=== PATIENT | male | born 1970 | race Two or more races ===

== ENCOUNTER → 2018-11-22 | Outpatient (CLI) | payer BC, OTHER ==
--- NOTE | 2018-11-23 00:15 | CONS ---
CONSULTATION DATE OF SERVICE: 11/22/2018. INDICATIONS: A 48-year-old gentleman who has been evaluated in the sleep center for possible obstructive sleep apnea-hypopnea syndrome. HISTORY OF PRESENT ILLNESS/SLEEP AWAKE EVALUATION: The patient's usual sleep schedule is from 11 p.m. to 6 a.m. on working days and on weekends from around 11:30 p.m. to 7 or 8 a.m. Sometimes he has problems with falling asleep, although no TV in bedroom. He sleeps usually on the side or stomach position with loud snoring and witnessed episodes of stopped breathing during the sleep by his . He wakes up from sleep several times with sweating and sometimes dry mouth. In the morning the patient wakes up tired with difficulties with concentration and irritability. [place] Sleepiness Scale significantly increased to 15. PAST MEDICAL HISTORY: Positive for hypertension and kidney stones. PAST SURGICAL HISTORY: Cholecystectomy, surgery for kidney stone. MEDICATIONS: Lisinopril. SOCIAL HISTORY: Negative for smoking. Alcohol consumption occasional. FAMILY HISTORY: Hypertension, heart problems, colon cancer. REVIEW OF SYSTEMS: Snoring, awakenings from sleep, sleepiness during the day. PHYSICAL EXAM: GENERAL: gentleman without distress. BP 128/88, HR 87, RR 14, height 6 feet 4 inches, weight 287.6 pounds, body mass index 34.9, temperature 97.6, oxygen saturation at room air 94%. Oropharynx low position of soft palate. Mallampati 3. NECK: Wide, 18-1/2 inches in circumference. ABDOMEN: Slightly obese. Bowel sounds are present. No organomegaly appreciated. EXTREMITIES No clubbing or cyanosis. MASTIC FLOOR LAYER Awake, alert, and oriented x3. Cranial nerves 2 to 7 intact. There is no fasciculation or atrophy. noted. No focal deficits observed. IMPRESSION: 1. Loud snoring, awakenings from sleep, sleepiness during the day, low position of soft palate, wide neck, obstructive sleep apnea-hypopnea syndrome. 2. Obesity, body mass index 34.9. 3. Hypertension. 4. History of kidney stone, status post surgical treatment in 2006. 5. Status post cholecystectomy in 2016. PLAN: 1. Home sleep apnea test for evaluation of patient's breathing during sleep. 2. Following plan after reviewing results of the sleep test. 3. Losing weight. 4. Sleep hygiene with regular time in bed for at least 8 hours. 5. No driving if feeling sleepiness. Thank you very much for referring this patient for consultation. Sincerely, Ronak Cardona MD, PhD, FAASM Diplomat of [place] [employer] [place] [employer] Stretcher Helper of [facility] [place] MMODL / SHANTA: [phone] /
== END ==
LOC: SLEEP 16:42
PROVIDERS: ATTEND Internal Medicine
DX: G47.33 Obstructive sleep apnea (adult) (pediatric) (principal); I10 Essential (primary) hypertension; Z87.442 Personal history of urinary calculi; Z90.49 Acquired absence of other specified parts of digestive tract; Z68.34 Body mass index [BMI] 34.0-34.9, adult
CPT/HCPCS: 99211

== ENCOUNTER 2019-01-25 07:33 | Day surgery (SDC) | payer BC, OTHER ==
[2019-01-23 10:47] VITALS: BMI 34.0
[~2019-01-25 07:33] MED LIST: LACTATED RINGERS 1,000 ML IV SCH; LIDOCAINE 1% 20 ML VIAL (10MG/ML) FOR IV START INTRADERMA PRN
[2019-01-25 07:58] VITALS: RESP 16; TEMP 97
--- NOTE | 2019-01-25 08:30 | P.GSHP ---
History of Present Illness H&P Date: 01/25/19 Chief Complaint: Family history: Cancer This is a 48-year-old male with a strong family history of colon cancer. Patient rents today for colonoscopy. Patient's brother has colon cancer. Past Medical History Past Medical History: Hypertension Additional Past Medical History / Comment(s): KIDNEY STONES History of Any Multi-Drug Resistant Organisms: None Reported Past Surgical History: Cholecystectomy Additional Past Surgical History / Comment(s): COLONOSCOPY. SX FOR KIDNEY STONES Past Anesthesia/Blood Transfusion Reactions: No Reported Reaction Smoking Status: Never smoker - Past Family History Brother(s) Family Medical History: Cancer Medications and Allergies Home Medications Medication Instructions Recorded Confirmed Type Lisinopril [Zestril] 10 mg PO DAILY 01/23/19 01/23/19 History Allergies Allergy/AdvReac Type Severity Reaction Status Date / Time No Known Allergies Allergy Verified 01/25/19 07:48 Surgical - Exam Vital Signs Temp Pulse Resp BP Pulse Ox 97.0 F L 90 16 14/89 95 01/25/19 07:57 01/25/19 07:57 01/25/19 07:57 01/25/19 07:57 01/25/19 07:57 - General well developed, well nourished, no distress - Eyes PERRL - ENT normal pinna - Neck no masses - Respiratory normal expansion - Cardiovascular Rhythm: regular - Abdomen Abdomen: soft, non tender Assessment and Plan Assessment: History of colon cancer. We'll perform colonoscopy.
--- NOTE | 2019-01-25 08:42 | P.OP ---
Date of Procedure: 01/25/19 Preoperative Diagnosis: Family history of colon cancer Postoperative Diagnosis: External hemorrhoids Diverticulosis Procedure(s) Performed: Colonoscopy Anesthesia: MAC Surgeon: Anshul Edward Pathology: none sent Condition: stable Disposition: PACU Description of Procedure: The patient's placed on the endoscopy table in the lateral position. He received IV sedation. Digital rectal exam is performed which revealed external and internal hemorrhoids. The prostate was symmetric without nodules. The flexible colonoscope was then placed patient anus passed throughout the entire colon. The ileocecal valve was visualized. The cecum, ascending and transverse colon appeared normal. In the descending and sigmoid colon there is moderate diverticular changes. The scope was then brought back the rectum and this appeared normal. Scope withdrawn for patient.
[2019-01-25 08:59] VITALS: BP 122/80; PULSE 75
== END 2019-01-25 09:12 | disposition home or self-care (01) ==
LOC: ORWHC2ENDO 07:33
PROVIDERS: ATTEND Surgery
DX: Z12.11 Encounter for screening for malignant neoplasm of colon (principal); K57.30 Diverticulosis of large intestine without perforation or abscess without bleeding; K64.4 Residual hemorrhoidal skin tags; Z80.0 Family history of malignant neoplasm of digestive organs; I10 Essential (primary) hypertension; Z87.442 Personal history of urinary calculi; Z90.49 Acquired absence of other specified parts of digestive tract; Z79.899 Other long term (current) drug therapy

== ENCOUNTER → 2019-03-07 | Outpatient (CLI) | payer BC, OTHER ==
--- NOTE | 2019-03-07 18:58 | PN ---
PROGRESS NOTE DATE OF SERVICE: 03/07/2019 This patient is a 48-year-old gentleman who has been followed in the sleep center for treatment of obstructive sleep apnea-hypopnea syndrome. Recently the patient had sleep study that showed obstructive sleep apnea with apnea/hypopnea index of 24.6 and oxygen desaturation to 78%. Then the patient had CPAP titration and subsequently received his CPAP unit. This is first visit after starting his treatment with CPAP. I checked his CPAP unit. Range of the pressure is from 5 to 10 cm of water. Average pressure is 9.6 cm of water. Usage is every night, and 24/30 nights for more than 4 hours. Average usage is 5.1 hours per night. Leak is 3 L/minute, which is perfect. Apnea-hypopnea index is normal. [place] Sleepiness Scale today is 6. MEDICATIONS: Lisinopril. PHYSICAL EXAMINATION: GENERAL: A pleasant patient in no distress. VITAL SIGNS: BP 145/92, HR 94, RR 14, height 6 feet 4 inches, weight 286, body mass index 34.8. HEENT: PERRLA, EOMI. Evaluation of oropharynx showed tongue protrudes midline. Low position of soft palate. Mallampati III-IV. NECK: Supple. No JVD. Thyroid is not palpable. LUNGS: Clear to percussion and to auscultation. Good air exchange. No wheezing or rhonchi. HEART: S1, S2 regular. No murmurs, gallops or rubs. ABDOMEN: Slightly obese. EXTREMITIES: No clubbing or cyanosis. LICENSED PSYCHIATRIC TECHNICIAN: Awake, alert, and oriented X3. Cranial nerves 2 to 7 intact. There is no fasciculation or atrophy. noted. No focal deficits observed. IMPRESSION: 1. Moderate obstructive sleep apnea-hypopnea syndrome; apnea-hypopnea index with oxygen desaturation to 78%, controlled with CPAP. The patient demonstrated good compliance with treatment, benefitting from treatment. 2. Severe periodic limb movements during titration, but no clinical symptoms of periodic limb movements. 3. hypertension. 4. History of kidney stone, status post surgical treatment. 5. Status post cholecystectomy. PLAN: 1. Patient will continue to use CPAP equipment every night for the whole night. 2. Watching and losing weight. 3. Sleep hygiene with regular time in bed for at least 8 hours. 4. No driving if feeling any sleepiness. 5. I will maintain all necessary CPAP prescriptions for mask, tube, filters. 6. Follow-up visit in about 10 months, or earlier if patient has any problems. Thank you very much for allowing me to participate in the management of your patient. Sincerely, Ronak Cardona MD, PhD, FAASM Diplomat of [place] [employer] [place] [employer] Medicine Chaplaincy [facility] [place] MMODL / HARSHAN: [phone] /
== END | disposition home or self-care (01) ==
LOC: SLEEP 15:00
PROVIDERS: ATTEND Internal Medicine
DX: G47.33 Obstructive sleep apnea (adult) (pediatric) (principal); I10 Essential (primary) hypertension; Z87.442 Personal history of urinary calculi; Z90.49 Acquired absence of other specified parts of digestive tract; Z79.899 Other long term (current) drug therapy; Z98.890 Other specified postprocedural states; Z99.89 Dependence on other enabling machines and devices

== ENCOUNTER → 2020-02-17 | Outpatient (CLI) | payer BC, OTHER ==
[2020-02-17 08:36] LABS: African American GFR (CKD) >90 (>60 ml/min/1.73 sqM); Blood Urea Nitrogen 13 mg/dL (9-20); Non-African American GFR(CKD) >90 (>60 ml/min/1.73 sqM)
--- NOTE | 2020-02-17 10:28 | CT ---
EXAMINATION TYPE: CT abdomen w con DATE OF EXAM: 02/17/2020 COMPARISON: Patient's ultrasound is unavailable for correlation. HISTORY: abnormal Ultrasound CT DLP: 1505.2 mGycm Automated exposure control for dose reduction was used. TECHNIQUE: Helical acquisition of images was performed from the lung bases through the top of iliac crest to include entire abdomen. CONTRAST: Performed with Oral Contrast and with IV Contrast, patient injected with 100 mL of Isovue 300. FINDINGS: LUNG BASES: No significant abnormality is appreciated. LIVER/GB: The liver shows low attenuation likely due to hepatic steatosis. Within the right lobe post eriorly there is a focus of mixed density, peripheral enhancement measuring approximately 4.7 cm x 3. 8 cm x 4.8 cm. Additionally in the right lobe towards the dome there are low dense foci which likely represent cysts measuring approximately 17 mm and 19 mm. Left lobe shows a lesion measuring 14 mm.. PANCREAS: No significant abnormality is seen. SPLEEN: Enlarged, AP diameter is 14.5 cm.. ADRENALS: No significant abnormality is seen. KIDNEYS: Right kidney shows an exophytic lesion in the midpole measuring approximately 4 cm.. BOWEL: No significant abnormality is seen. LYMPH NODES: No significant abnormality is appreciated. OSSEOUS STRUCTURES: Degenerative disc changes are present in the visualized lumbar spine.. FREE AIR: No Free Air visible ASCITES: None visible. RETROPERITONEAL ADENOPATHY: No Retroperitoneal Adenopathy visible. OTHER: There is some indeterminate soft tissue density which is incompletely evaluated within the ant erior mediastinum. IMPRESSION: INDETERMINATE MASS WITHIN THE RIGHT LOBE OF THE LIVER. RECOMMEND LIVER MRI FOR BETTER EVALUATION WITH IN WITHOUT CONTRAST. INDETERMINATE MEDIASTINAL LESION, CONSIDER DEDICATED CHEST CT WITH CONTRAST. SPL ENOMEGALY. ADDITIONAL FINDINGS ABOVE.
== END | disposition home or self-care (01) ==
LOC: RADCTMAIN 07:55
PROVIDERS: ATTEND Family Medicine
DX: R16.1 Splenomegaly, not elsewhere classified (principal); K76.9 Liver disease, unspecified
CPT/HCPCS: 82565; 84520; 74160; 36415; Q9967

== ENCOUNTER → 2020-03-19 | Outpatient (CLI) | payer BC, OTHER ==
--- NOTE | 2020-03-20 01:14 | SFUN ---
SLEEP CENTER FOLLOW UP NOTE DATE OF SERVICE: 03/19/2020 A 49-year-old gentleman who had been followed in Sleep Center for treatment of obstructive sleep apnea-hypopnea syndrome. Patient continued to use his CPAP equipment every night for the whole night. Sleeps well with the machine. Patient lost weight from 286 pounds during the visit one year ago down to 261 pounds today. I checked his CPAP unit. It is an automatic regimen with range of the pressures 6 to 10. Average pressure 9.8. Usage 27 out of 30 nights for more than 4 hours with average usage 5.8 hours per night, which is good compliance. Apnea-hypopnea index for the last month reading is 4.0. [place] Sleepiness Scale is 4, which is totally normal. MEDICATIONS: Glucophage, lisinopril. PHYSICAL EXAMINATION: GENERAL: Patient in no distress. VITAL SIGNS: BP 148/106, HR 86, RR 16, height 6 feet 4 inches, weight 261, body mass index 31.7, temperature 98.1, oxygen saturation at room air 97%. HEENT: PERRLA, EOMI. Oropharynx low position of soft palate, Mallampati 3-4. Neck is wide, 17-1/2 inches in circumference. NECK: Supple, no JVD. Thyroid is not palpable. LUNGS: Clear to percussion and to auscultation. Good air exchange. No wheezing or rhonchi. HEART: S1, S2 regular. No murmurs, gallops, or rubs. ABDOMEN: Soft and nontender. Bowel sounds are present. No organomegaly appreciated. EXTREMITIES: No clubbing or cyanosis. PIPE AND TEST SUPERVISOR: Awake, alert, and oriented X3. Cranial nerves 2 to 7 intact. There is no fasciculation or atrophy. noted. No focal deficits observed. IMPRESSION: 1. Moderate obstructive sleep apnea-hypopnea syndrome. The patient demonstrated great compliance with treatment, benefitting from treatment. 2. Mild obesity. Patient lost 25 pounds since previous visit. 3. History of hypertension. 4. Diabetes mellitus. 5. History of kidney stones, status post surgical treatment. 6. Status post cholecystectomy. 7. History of significant periodic limb movements. No clinical symptoms indicate necessity for pharmacotherapy at the present time. PLAN: 1. I changed regimen in CPAP unit to maximum pressure of 12. 2. Patient will continue to use PAP equipment every night for the whole night. 3. Sleep hygiene with regular time in bed for at least 7-1/2 to 8 hours. 4. Precautions related to driving. No driving if feeling sleepiness. 5. I will maintain all necessary prescription for PAP supplies including mask, tube, filters. 6. Watching weight. 7. No driving if feeling sleepiness. 8. Follow-up visit in 6 months or earlier if patient has any problems. Thank you very much for allowing me to participate in management of your patient. Sincerely, Ronak Cardona MD, PhD, FAASM Diplomat of [place] [employer] [place] [employer] Tractor Trailer Operator of [facility] [place] MMODL / IJN: [id number] /
== END ==
LOC: SLEEP 13:51
PROVIDERS: ATTEND Internal Medicine
DX: G47.33 Obstructive sleep apnea (adult) (pediatric) (principal); E66.9 Obesity, unspecified; E11.9 Type 2 diabetes mellitus without complications; Z90.49 Acquired absence of other specified parts of digestive tract; Z87.39 Personal history of other diseases of the musculoskeletal system and connective tissue; Z86.79 Personal history of other diseases of the circulatory system; Z87.442 Personal history of urinary calculi; Z68.31 Body mass index [BMI] 31.0-31.9, adult; Z79.84 Long term (current) use of oral hypoglycemic drugs; Z79.899 Other long term (current) drug therapy

== ENCOUNTER → 2020-04-22 | Outpatient (CLI) | payer OTHER ==
--- NOTE | 2020-04-23 05:11 | MR ---
EXAMINATION TYPE: MR liver wo/w con DATE OF EXAM: 04/22/2020 COMPARISON: HISTORY: Mass CONTRAST: Standard multiplanar, multisequence MRI departmental protocol utilizing 11.5 mL intravenous Gadavist gadolinium contrast. There is 2 cm cyst in the superior lateral right lobe of the liver. There is 1.7 cm cyst in the super ior right lobe of the liver. There is 1 cm cyst in the left lobe of the liver. There is irregular 5 cm mass in the inferior right lobe of the liver. This is somewhat lobulated and has intermediate signal on T2 images and decreased signal on T1 images. This shows delayed enhancemen t with contrast. These are features of a hemangioma. Spleen is intact. There is no pancreatic mass. Stomach is intact. There is no adrenal mass. There is 3.8 cm cortical cyst lateral right kidney. There are 1 cm cortical cysts in the left kidney. There is no evidence of solid renal mass. There is no evidence of retroperitoneal adenopathy. Gallbladder is absent. The bile ducts are not dilated. Intrahepatic bile ducts are normal. The pancreatic duct appea rs normal. IMPRESSION: There is irregular lobulated mass in the inferior right lobe of the liver with delayed enhancement pa ttern suggestive of hemangioma. This appears unchanged in size compared to CT scan of 02/17/2020. Multiple hepatic cysts. Renal cortical cysts.
== END | disposition home or self-care (01) ==
LOC: RADMRIMAIN 18:19
PROVIDERS: ATTEND Family Medicine
DX: K76.89 Other specified diseases of liver (principal); R16.0 Hepatomegaly, not elsewhere classified; N28.1 Cyst of kidney, acquired; D18.03 Hemangioma of intra-abdominal structures; Z80.0 Family history of malignant neoplasm of digestive organs; K76.9 Liver disease, unspecified
CPT/HCPCS: 74183; A9585

== ENCOUNTER → 2020-10-22 | Outpatient (CLI) | payer OTHER ==
--- NOTE | 2020-10-22 12:01 | SFUN ---
SLEEP CENTER FOLLOW UP NOTE DATE OF SERVICE: 10/22/2020 This 50-year-old gentleman had been followed in Sleep Center for treatment of obstructive sleep apnea-hypopnea syndrome. The patient continues to use his CPAP equipment every night for the whole night. No snoring with the machine. [facility] [place] Sleepiness Scale slightly increased to 11. I checked CPAP unit. Range of the pressure from 5.6-12, average pressure 11.1, usage 27 out of 30 nights for more than 4 hours with average usage 5.9 hours per night. Leak is only 1 L/minute. Apnea-hypopnea index is 2.9, which is perfect. MEDICATIONS: Metformin 500 mg twice a day, lisinopril 10 mg once a day. PHYSICAL EXAMINATION: GENERAL: Patient in no distress. VITAL SIGNS: BP 131/89, HR 79, RR 15, height 6 feet 5 inches, weight 261.6, BMI 30.9, oxygen saturation at room air 95%, temperature 97.3. HEENT: PERRLA, EOMI. Oropharynx low position of soft palate. Mallampati 3-4. NECK: Supple, no JVD. Thyroid is not palpable. LUNGS: Clear to percussion and to auscultation. Good air exchange. No wheezing or rhonchi. HEART: S1, S2 regular. No murmurs, gallops, or rubs. ABDOMEN: Soft and nontender. Bowel sounds are present. No organomegaly appreciated. EXTREMITIES: No clubbing or cyanosis. POCKET SETTER: Awake, alert, and oriented X3. Cranial nerves 2 to 7 intact. There is no fasciculation or atrophy. noted. No focal deficits observed. IMPRESSION: 1. Obstructive sleep apnea-hypopnea syndrome. Patient demonstrated great compliance with treatment, benefitting from treatment. 2. Mild obesity, borderline to overweight. 3. Diabetes mellitus. 4. History of hypertension. 5. History of kidney stones, status post surgical treatment. 6. Status post cholecystectomy. 7. History of significant periodic limb movements by results of the sleep study. I again discussed that issue with patient. No complaints of limb movements, sleeps well. PLAN: 1. Patient will continue to use PAP equipment every night for the whole night. 2. Sleep hygiene with regular time in bed for at least 7-1/2 to 8 hours. 3. Precautions related to driving. No driving if feeling sleepiness. 4. I will maintain all necessary prescription for PAP supplies including mask, tube, filters. 5. Watching weight. 6. No driving if feeling sleepiness. 7. Follow-up visit in 6 months or earlier if patient has any problems. Thank you very much for allowing me to participate in management of your patient. Sincerely, Ronak aCrdona MD, PhD, FAASM Diplomat of [place] [employer] Specialties [employer] Medicine Junior Manufacturing Engineer of [facility] [place] MMODL / IJN: [id number] /
== END | disposition home or self-care (01) ==
LOC: SLEEP 10:28
PROVIDERS: ATTEND Internal Medicine
DX: G47.33 Obstructive sleep apnea (adult) (pediatric) (principal); E66.9 Obesity, unspecified; E11.9 Type 2 diabetes mellitus without complications; Z86.79 Personal history of other diseases of the circulatory system; Z87.442 Personal history of urinary calculi; Z99.89 Dependence on other enabling machines and devices; Z90.49 Acquired absence of other specified parts of digestive tract; Z98.890 Other specified postprocedural states

== ENCOUNTER 2020-12-17 08:30 | Day surgery (SDC) | payer OTHER ==
[2020-12-15 10:50] VITALS: BMI 30.4
[~2020-12-17 08:30] MED LIST changes: -LIDOCAINE 1% 20 ML VIAL (10MG/ML) FOR IV START INTRADERMA PRN
[2020-12-17 09:16] VITALS: TEMP 97.9
[2020-12-17 09:17] LABS: Glucose,Whole Blood 114 mg/dL (75-99)
[2020-12-17] MEDS ORDERED: PROPOFOL 10 MG/ML 20 ML VIAL IV ONE (09:24)
--- NOTE | 2020-12-17 09:26 | P.GSHP ---
History of Present Illness H&P Date: 12/17/20 Chief Complaint: GI bleed, diarrhea Is a 50-year-old male who presents today for colonoscopy. Patient's had some rectal bleeding is also had some diarrhea. He has a strong family history of colon cancer Past Medical History Past Medical History: Diabetes Mellitus, Hypertension, Sleep Apnea/CPAP/BIPAP Additional Past Medical History / Comment(s): c-pap machine, kidney stones, family hx colon cancer, hx blood in stool. History of Any Multi-Drug Resistant Organisms: None Reported Past Surgical History: Cholecystectomy Additional Past Surgical History / Comment(s): COLONOSCOPY. SX FOR KIDNEY STONES Past Anesthesia/Blood Transfusion Reactions: No Reported Reaction Past Psychological History: No Psychological Hx Reported Smoking Status: Never smoker Past Alcohol Use History: Rare Past Drug Use History: None Reported - Past Family History Brother(s) Family Medical History: Cancer Additional Family Medical History / Comment(s): colon cancer Father Family Medical History: Cancer Additional Family Medical History / Comment(s): pancreatic cancer Medications and Allergies Home Medications Medication Instructions Recorded Confirmed Type lisinopriL [Zestril] 10 mg PO DAILY 01/23/19 12/17/20 History metFORMIN HCL [Glucophage] 500 mg PO BID 02/06/20 12/17/20 History Multivit-Min/Folic/Vit K/Lycop 1 each PO DAILY 12/15/20 12/17/20 History [Men's Multivitamin Tablet] Allergies Allergy/AdvReac Type Severity Reaction Status Date / Time No Known Allergies Allergy Verified 12/17/20 08:52 Surgical - Exam Vital Signs Temp Pulse Resp BP Pulse Ox 97.9 F 89 16 146/91 94 L 12/17/20 08:51 12/17/20 08:51 12/17/20 08:51 12/17/20 08:51 12/17/20 08:51 - General well developed, well nourished, no distress - Eyes PERRL - ENT normal pinna - Neck no masses - Respiratory normal expansion - Cardiovascular Rhythm: regular - Abdomen Abdomen: soft, non tender Results - Labs Abnormal Lab Results - Last 24 Hours (Table) 12/17/20 Range/Units 09:06 POC Glucose (mg/dL) 114 H (75-99) mg/dL Assessment and Plan Assessment: GI bleed, diarrhea. We'll perform colonoscopy.
--- NOTE | 2020-12-17 09:41 | P.OP ---
Date of Procedure: 12/17/20 Preoperative Diagnosis: Rectal bleeding Diarrhea Postoperative Diagnosis: diverticulosis Procedure(s) Performed: Colonoscopy Anesthesia: MAC Surgeon: Anshul Edward Pathology: none sent Condition: stable Disposition: PACU Description of Procedure: Patient's placed on the endoscopy table in the lateral position. He received IV sedation. Digital rectal exam was performed which revealed no abnormalities. Flexible colonoscope was then placed patient anus passed throughout the entire colon. The ileocecal valve was visualized. The cecum, ascending and transverse colon appeared normal. The descending colon was normal. In the sigmoid colon a few scattered diverticula. Scope was brought back the rectum this appeared normal. Scope was withdrawn for patient
[2020-12-17 09:58] VITALS: BP 134/74; PULSE 68; RESP 18
== END 2020-12-17 10:21 | disposition home or self-care (01) ==
LOC: ORWHC2ENDO 08:30
PROVIDERS: ATTEND Surgery
DX: K57.31 Diverticulosis of large intestine without perforation or abscess with bleeding (principal); E11.9 Type 2 diabetes mellitus without complications; I10 Essential (primary) hypertension; G47.33 Obstructive sleep apnea (adult) (pediatric); Z99.89 Dependence on other enabling machines and devices; Z87.442 Personal history of urinary calculi; Z80.0 Family history of malignant neoplasm of digestive organs; Z90.49 Acquired absence of other specified parts of digestive tract; Z98.890 Other specified postprocedural states; Z79.84 Long term (current) use of oral hypoglycemic drugs; Z79.899 Other long term (current) drug therapy
CPT/HCPCS: 45378; J2704

== ENCOUNTER → 2021-09-23 | Outpatient (CLI) | payer OTHER ==
--- NOTE | 2021-09-23 16:43 | SFUN ---
SLEEP CENTER FOLLOW UP NOTE DATE OF SERVICE: 09/23/2021. 51-year-old gentleman who has been followed in Sleep Center for treatment of obstructive sleep apnea-hypopnea syndrome. Patient continues to use his CPAP equipment every night, getting his supplies in time. [place] Sleepiness Scale today is 6. I checked his CPAP unit. Range of the pressure 5.6-12, average pressure 11.7, usage 30/30 nights. Average 6.8 hours per night. Leak is only 1 L/minute which is perfect for fullface mask. Apnea-hypopnea index 3.1. CURRENT MEDICATIONS: Metformin 500 mg twice a day, lisinopril 10 mg once a day, atorvastatin. PHYSICAL EXAMINATION: GENERAL: Patient in no distress. BP 136/95, HR 82, RR 14, height 6 feet 4-1/2 inches, weight 258 pounds, body mass index 30.9, temperature 98.0. Oxygen saturation at room air 97%. Oropharynx: Low position of soft palate, Mallampati 3-4. NECK: Supple, no JVD. Thyroid is not palpable. LUNGS: Clear to percussion and to auscultation. Good air exchange. No wheezing or rhonchi. HEART: S1, S2 regular. No murmurs, gallops, or rubs. ABDOMEN: Soft and nontender. Bowel sounds are present. No organomegaly appreciated. EXTREMITIES: No clubbing or cyanosis. SOCIAL SCIENCES LECTURER: Awake, alert, and oriented X3. Cranial nerves 2 to 7 intact. There is no fasciculation or atrophy. noted. No focal deficits observed. IMPRESSION: 1. Obstructive sleep apnea-hypopnea syndrome. Patient demonstrated 100% compliance with treatment. Normal respiration on CPAP. 2. Borderline to overweight. 3. Hypertension. 4. Diabetes mellitus. 5. History of kidney stones status post surgical treatment. 6. Status post cholecystectomy. 7. History of periodic limb movements during the sleep. No complaints of leg movements. PLAN: 1. Patient will continue to use PAP equipment every night for the whole night. 2. Sleep hygiene with regular time in bed for at least 7-1/2 to 8 hours. 3. Precautions related to driving. No driving if feeling sleepiness. 4. I will maintain all necessary prescription for PAP supplies including mask, tube, filters. 5. Watching weight. 6. Follow-up visit in 6 months or earlier if patient has any problems. Thank you very much for allowing me to participate in management of your patient. Sincerely, Ronak Cardona MD, PhD, FAASM Diplomat of [place] [employer] Sleep Medicine Board of [place] [employer] Occupational Therapist Home Based of [facility] [place] MMMALLORY / SHANTA: [phone] /
== END ==
LOC: SLEEP 15:49
PROVIDERS: ATTEND Internal Medicine
DX: G47.33 Obstructive sleep apnea (adult) (pediatric) (principal); E66.3 Overweight; I10 Essential (primary) hypertension; E11.9 Type 2 diabetes mellitus without complications; Z90.49 Acquired absence of other specified parts of digestive tract; Z99.89 Dependence on other enabling machines and devices; Z87.442 Personal history of urinary calculi; Z98.890 Other specified postprocedural states; Z79.84 Long term (current) use of oral hypoglycemic drugs; Z79.899 Other long term (current) drug therapy

== ENCOUNTER → 2022-09-01 | Outpatient (CLI) | payer OTHER ==
--- NOTE | 2022-09-01 16:46 | P.PN ---
Subjective DATE: 09/01/2022 FOLLOW UP VISIT. Patient with obstructive sleep apnea hypopnea syndrome return to sleep center for follow-up visit. Information from previous visit have been reviewed. Patient is using PAP equipment every night for the whole night, getting PAP supplies in time. The patient does not have significant problems with the mask, PAP unit and humidification. [place] sleepiness scale is slightly increased to 12. Last several nights patient slept a little bit short than usual because of his work schedule. I checked information from PAP unit. PAP unit pressure 5.6-12, average 11.6 cm H2O. Usage is 100 % for more then 4 hours, average 6.9 hours per night. Leak is 4 l/m, which is in acceptable range. Apnea Hypopnea Index is 2.3, which is normal. MEDICATIONS:1. Metformin 500 mg twice a day 2. Atorvastatin 20 mg once a day 3. Lisinopril 10 mg once a day During physical exam: GENERAL: A pleasant patient without any distress. VITAL SIGNS: BP 121/89, HR 89, RR 14 , weight 268.0, temperature 97.2, oxygen saturation at room air 96 % . HEENT: PERRLA, EOMI.low position of soft palate, Mallapati 34 . NECK: Supple. No JVD. LUNGS: Clear to percussion and to auscultation. Good air exchange. No wheezing or rhonchi. HEART: S1, S2 regular. ABDOMEN: Soft and nontender. Slightly obese EXTREMITIES: No clubbing or cyanosis. CARD GRINDER HELPER: Awake, alert, and oriented x3. No focal deficit. Impressions: 1. Obstructive sleep apnea-hypopnea syndrome. Patient demonstrated great compliance with treatment, benefiting from treatment. 2. Hypertension. 3. Diabetes mellitus. 4. Mild obesity patient increased weight and 10 pounds. 5. History of periodic limb movements, no clinical symptoms presently. 6. History of kidney stones, status post surgical treatment. 7. Status post cholecystectomy. Plan: 1. Continue using PAP equipment every night for the whole night. 2. To change air filter at least 1-2 times per month. 3. PAP unit should stay lower then position of the head. 4. Advised patient to remove all remaining water from humidifier canister daily and make it dry after each usage. Refill canister with fresh distilled water before each usage. 5. Sleep hygiene with regular time in bed for at least 8 hours. 6. Precautions related to driving. No driving if feel any sleepiness. 7. I will maintain prescription for PAP supplies including mask, tube, filters. 8. Follow up visit in 6 months or earlier if patient has any problems. 9. Watching and losing weight. Thank you very much for allowing me to participate in the management of your patient. Ronak Cardona MD, PhD, FAASM. Diplomat of [place] [employer], Sleep Medicine Board by [place] [employer] Turret Press Operator of [facility] [place]
== END ==
LOC: SLEEP 16:17
PROVIDERS: ATTEND Internal Medicine
DX: G47.33 Obstructive sleep apnea (adult) (pediatric) (principal); I10 Essential (primary) hypertension; E11.9 Type 2 diabetes mellitus without complications; E66.9 Obesity, unspecified; G47.61 Periodic limb movement disorder; Z90.49 Acquired absence of other specified parts of digestive tract; Z87.442 Personal history of urinary calculi; Z99.89 Dependence on other enabling machines and devices; Z79.84 Long term (current) use of oral hypoglycemic drugs; Z79.899 Other long term (current) drug therapy
CPT/HCPCS: 99212

== ENCOUNTER → 2023-01-21 | Outpatient (CLI) | payer OTHER ==
--- NOTE | 2023-01-21 09:32 | MR ---
EXAMINATION TYPE: MR liver wo/w con DATE OF EXAM: 01/21/2023 COMPARISON: 04/22/2020 HISTORY: Liver mass, hemangioma, hepatomegaly. CONTRAST: Standard multiplanar, multisequence MRI departmental protocol images were obtained without contrast a nd with 11.5 mL intravenous Gadavist gadolinium contrast. FINDINGS: Liver: Again noted within the right hepatic lobe at its medial periphery is a lobulated mass which me asures 4.8 x 4.7 x 4.7 cm versus maximal measurement of 5 cm previously. Following contrast administr ation there is early peripheral enhancement with subsequent delayed images demonstrating complete bennie l in with contrast medium suggesting cavernous hemangioma. Overall there is no appearance in the mass . There are several scattered simple cysts noted measuring up to 1.6 cm. Mild hepatic enlargement see n. Gallbladder is surgically absent. Pancreas: No evidence for mass or inflammatory process. Spleen: Spleen is mildly prominent at 13.4 cm craniocaudal dimension. Kidneys: Simple cyst midpole right kidney is unchanged and measures 5 cm in greatest dimension. Solid renal masses seen. No hydronephrosis. The bowel aorta: Normal caliber: Adrenal glands: Unremarkable IMPRESSION: 1. Stable mass with features of cavernous hemangioma of the right hepatic lobe. 2. Mild splenomegaly. 3. Renal and hepatic cystic changes.
== END | disposition home or self-care (01) ==
LOC: RADMRIMAIN 07:26
PROVIDERS: ATTEND Family Medicine
DX: D18.03 Hemangioma of intra-abdominal structures (principal); R16.1 Splenomegaly, not elsewhere classified; R16.0 Hepatomegaly, not elsewhere classified; N28.1 Cyst of kidney, acquired; K76.89 Other specified diseases of liver
CPT/HCPCS: 74183; A9585

== ENCOUNTER → 2023-04-13 | Outpatient (CLI) | payer OTHER ==
--- NOTE | 2023-04-13 17:45 | P.PN ---
Subjective DATE: 04/13/2023 FOLLOW UP VISIT. Patient with obstructive sleep apnea hypopnea syndrome return to sleep center for follow-up visit. Information from previous visit have been reviewed. Patient is using PAP equipment every night for the whole night, getting PAP supplies in time. The patient does not have significant problems with the mask, PAP unit and humidification. [place] sleepiness scale is 9, which is borderline. I checked information from PAP unit. PAP unit pressure 6-15, average 12 cm H2O. Usage is around 70% % for more then 4 hours, average 6.2 hours per night. Some nights patient using second CPAP unit. Leak is 7 l/m, which is in acceptable range. Apnea Hypopnea Index is 0.9, which is normal. MEDICATIONS:1. Atorvastatin 20 mg once a day 2. Lisinopril 10 mg once a day 3. [place] 2.5 mg once a week During physical exam: GENERAL: A pleasant patient without any distress. VITAL SIGNS: BP 116/80, HR 83, RR 12 , weight 250.4, temperature 97.6, oxygen saturation at room air 97% % . HEENT: PERRLA, EOMI.low position of soft palate, Mallapati 3-4 . NECK: Supple. No JVD. LUNGS: Clear to percussion and to auscultation. Good air exchange. No wheezing or rhonchi. HEART: S1, S2 regular. ABDOMEN: Soft and nontender.[] EXTREMITIES: No clubbing or cyanosis. HEEL STAINER: Awake, alert, and oriented x3. No focal deficit. Impressions: 1. Obstructive sleep apnea-hypopnea syndrome. Patient demonstrated good compliance with treatment, benefiting from treatment. 2. Diabetes mellitus. 3. Hypertension. 4. Hyperlipidemia. 5. Mild obesity BMI 30.4, patient lost 18 pounds since previous visit. 6. History of kidney stones status post surgical treatment. Plan: 1. Continue using PAP equipment every night for the whole night. 2. To change air filter at least 1-2 times per month. 3. PAP unit should stay lower then position of the head. 4. Advised patient to remove all remaining water from humidifier canister daily and make it dry after each usage. Refill canister with fresh distilled water before each usage. 5. Sleep hygiene with regular time in bed for at least 8 hours. 6. Precautions related to driving. No driving if feel any sleepiness. 7. I will maintain prescription for PAP supplies including mask, tube, filters. 8. Watching weight. 9. Follow up visit in 6 months or earlier if patient has any problems. Thank you very much for allowing me to participate in the management of your patient. Ronak Cardona MD, PhD, FAASM. Diplomat of [place] [employer], Sleep Medicine Board by [place] [employer] Grain Oilseed Or Pasture Grower of [facility] [place]
== END ==
LOC: 3 N SLEEP 16:30
PROVIDERS: ATTEND Internal Medicine
DX: G47.33 Obstructive sleep apnea (adult) (pediatric) (principal); E11.9 Type 2 diabetes mellitus without complications; E66.9 Obesity, unspecified; E78.5 Hyperlipidemia, unspecified; I10 Essential (primary) hypertension; Z68.30 Body mass index [BMI] 30.0-30.9, adult; Z87.442 Personal history of urinary calculi; N20.0 Calculus of kidney; Z79.899 Other long term (current) drug therapy; Z99.89 Dependence on other enabling machines and devices
CPT/HCPCS: 99212

== ENCOUNTER → 2023-11-16 | Outpatient (CLI) | payer OTHER ==
[2023-11-16 17:15] VITALS: BP 124/80; PULSE 87; RESP 16; TEMP 97.7
--- NOTE | 2023-11-16 17:30 | P.PN ---
Subjective DATE: 11/16/2023 FOLLOW UP VISIT. Patient with obstructive sleep apnea hypopnea syndrome return to sleep center for follow-up visit. Information from previous visit have been reviewed. Patient is using PAP equipment every night for the whole night, getting PAP supplies in time. The patient does not have significant problems with the mask, PAP unit and humidification. [place] sleepiness scale is 7, which is normal. I checked information from PAP unit. PAP unit pressure 6-15, average 12.6 cm H2O. Usage is 100% for more then 4 hours, average 6.5 hours per night. Leak is 5.4 l/m, which is in acceptable range. Apnea Hypopnea Index is 1.3, which is normal. MEDICATIONS:1. Lisinopril 10 mg once a day 2. Atorvastatin 20 mg once a day 3. Mounjaro 0.5 mg once a week During physical exam: GENERAL: A pleasant patient without any distress. VITAL SIGNS: Please see below. HEENT: PERRLA, EOMI.low position of soft palate, Mallapati 3-4 . NECK: Supple. No JVD. LUNGS: Clear to percussion and to auscultation. Good air exchange. No wheezing or rhonchi. HEART: S1, S2 regular. ABDOMEN: Soft and nontender.[] EXTREMITIES: No clubbing or cyanosis. DRAGSAW OPERATOR: Awake, alert, and oriented x3. No focal deficit. Impressions: 1. Obstructive sleep apnea-hypopnea syndrome. Patient demonstrated great compliance with treatment, benefiting from treatment. 2. Diabetes mellitus. 3. Hypertension. 4. Hyperlipidemia. 5. History of kidney stones status post surgical treatment. Plan: 1. Continue using PAP equipment every night for the whole night. 2. To change air filter at least 1-2 times per month. 3. PAP unit should stay lower then position of the head. 4. Advised patient to remove all remaining water from humidifier canister daily and make it dry after each usage. Refill canister with fresh distilled water before each usage. 5. Sleep hygiene with regular time in bed for at least 8 hours. 6. Precautions related to driving. No driving if feel any sleepiness. 7. I will maintain prescription for PAP supplies including mask, tube, filters. 8. Follow up visit in 6 months or earlier if patient has any problems. 9. Watching weight. Thank you very much for allowing me to participate in the management of your patient. Ronak Cardona MD, PhD, FAASM. Diplomat of [place] [employer], Sleep Medicine Board by [place] [employer] Supply Chain Consultant of [facility] [place] Objective - Vital Signs Vital signs: Vital Signs Temp 97.7 F 11/16/23 17:07 Pulse 87 11/16/23 17:07 Resp 16 11/16/23 17:07 BP 124/80 11/16/23 17:07 Pulse Ox 97 11/16/23 17:07 FiO2 Intake & Output 11/15/23 11/16/23 11/16/23 18:59 06:59 18:59 Weight 111.584 kg
== END ==
LOC: 3 N SLEEP 16:39
PROVIDERS: ATTEND Internal Medicine
DX: G47.33 Obstructive sleep apnea (adult) (pediatric) (principal); E11.9 Type 2 diabetes mellitus without complications; I10 Essential (primary) hypertension; E78.5 Hyperlipidemia, unspecified; Z87.442 Personal history of urinary calculi; Z79.899 Other long term (current) drug therapy; Z99.89 Dependence on other enabling machines and devices; Z79.85 Long-term (current) use of injectable non-insulin antidiabetic drugs
CPT/HCPCS: 99212

== ENCOUNTER → 2023-11-25 | Outpatient (CLI) | payer OTHER ==
--- NOTE | 2023-11-28 16:01 | MR ---
EXAMINATION TYPE: MR brain wo/w con DATE OF EXAM: 11/25/2023 1:31 PM COMPARISON: NONE HISTORY: Loss of peripheral vision, headaches. FINDINGS: The ventricles, basal cisterns and sulci overlying the cerebral convexities are mildly enlarged. There is evidence of mild periventricular white matter ischemic demyelination. Remote deep white matter insults are also noted. No acute edema is seen on diffusion weighted imaging. There is no evidence for midline shift or mass effect. Acute intracranial hemorrhage or extra-axial collection is not evident. The paranasal sinuses and mastoid air cells are well-aerated. IMPRESSION: Age-related atrophic and chronic small vessel ischemic change. No acute intracranial process at this time.
== END | disposition home or self-care (01) ==
LOC: RADMRIMAIN 12:33
PROVIDERS: ATTEND Family Medicine
DX: I67.82 Cerebral ischemia (principal); G31.9 Degenerative disease of nervous system, unspecified; H53.459 Other localized visual field defect, unspecified eye; G43.909 Migraine, unspecified, not intractable, without status migrainosus
CPT/HCPCS: 70553; A9585

== ENCOUNTER → 2024-04-09 | Outpatient (CLI) | payer OTHER ==
--- NOTE | 2024-04-30 11:29 | MR ---
Patient: Oh Larry E Ordering Physician: Unknown, Unknown ID: [id number] Phone, Pager: Phone: N/ A Pager: N/A : 1970 Age/Gender: 53Y, M Primary Location: N/A Procedure: MRI LEFT SHOULDER WO CONTRAST Study Date: 04/09/2024 8:03:08 AM Order #: N/[id number] EXAMINATION TYPE: MR shoulder LT wo con DATE OF EXAM: 04/18/2024 COMPARISON: None. HISTORY: Pain TECHNIQUE: Multiplanar, multisequence imaging of the left shoulder is performed without contrast. FINDINGS: Suboptimal study with motion artifact. Rotator Cuff: Some increased signal in the distal infraspinatus tendon. Supraspinatus tendon is intac t. Heterogeneous subscapularis tendon. Rotator cuff muscle bulk is preserved. Acromioclavicular Joint: Moderate narrowing with mild spurring. No significant capsular hypertrophy. Glenohumeral Joint: Small joint effusion. No significant spurring. Labrum: The labrum appears grossly intact given limitation of non-arthrogram study. Biceps Tendon: The long head of biceps is in normal location within bicipital groove. Bone marrow signal: No focal abnormal marrow signal is appreciated. Other: No additional significant abnormality is appreciated. IMPRESSION: Suboptimal study with some tendinosis of the distal infraspinatus tendon and tendinosis of the subsca pularis tendon. No labral tear is seen.
== END | disposition home or self-care (01) ==
LOC: RADMRIMAIN 08:22
PROVIDERS: ATTEND Family Medicine
DX: M25.812 Other specified joint disorders, left shoulder (principal); M77.8 Other enthesopathies, not elsewhere classified; M67.814 Other specified disorders of tendon, left shoulder

== ENCOUNTER → 2024-06-27 | Outpatient (CLI) | payer OTHER ==
[2024-06-27 17:25] VITALS: BP 121/79; PULSE 83; RESP 16; TEMP 97.6
--- NOTE | 2024-06-27 18:00 | P.PROGSL ---
Subjective DATE: 06/27/2024 FOLLOW UP VISIT. Patient with obstructive sleep apnea hypopnea syndrome return to sleep center for follow-up visit. Information from previous visit have been reviewed. Patient is using PAP equipment every night for the whole night, getting PAP supplies in time. The patient does not have significant problems with the mask, PAP unit and humidification. [place] sleepiness scale is 6, which is normal. I checked information from PAP unit. PAP unit pressure 6-15, average 12 cm H2O. Usage is 100% for more then 4 hours, average 6.2 hours per night. Leak is 7 l/m, which is in acceptable range. Apnea Hypopnea Index is 1.5, which is normal. MEDICATIONS have been reviewed, please see below. During physical exam: GENERAL: A pleasant patient without any distress. VITAL SIGNS: Please see below, weight is 246.2 lbs. HEENT: PERRLA, EOMI.low position of soft palate, Mallapati 34. NECK: Supple. No JVD. LUNGS: Clear to percussion and to auscultation. Good air exchange. No wheezing or rhonchi. HEART: S1, S2 regular. ABDOMEN: Soft and nontender.[] EXTREMITIES: No clubbing or cyanosis. PLANT TECH: Awake, alert, and oriented x3. No focal deficit. Impressions: 1. Obstructive sleep apnea-hypopnea syndrome. Patient demonstrated great compliance with treatment, benefiting from treatment. 2. Hypertension. 3. Diabetes mellitus. 4. History of kidney stones status post surgical treatment. 5. Hyperlipidemia. Plan: 1. Continue using PAP equipment every night for the whole night. 2. Sleep hygiene with regular time in bed for at least 7.5-8 hours 3. PAP unit should stay lower then position of the head. 4. Advised patient to remove all remaining water from humidifier canister daily and make it dry after each usage. Refill canister with fresh distilled water before each usage. 5. Watching weight. 6. Precautions related to driving. No driving if feel any sleepiness. 7. I will maintain prescription for PAP supplies including mask, tube, filters. 8. Follow up visit in 8 months or earlier if patient has any problems. Thank you very much for allowing me to participate in the management of your patient. Ronak Cardona MD, PhD, FAASM. Diplomat of [place] [employer], Sleep Medicine Board by [place] [employer] Mechanical Service Technician of [facility] [place] Objective - Vital Signs Vital Signs: Vital Signs Temp 97.6 F 06/27/24 17:25 Pulse 83 06/27/24 17:25 Resp 16 06/27/24 17:25 BP 121/79 06/27/24 17:25 Pulse Ox 94 L 06/27/24 17:25 FiO2 Intake & Output 06/26/24 06/27/24 06/27/24 18:59 06:59 18:59 Weight 109.826 kg Home Medications: Home Medications Medication Instructions Recorded Confirmed Type lisinopriL [Zestril] 10 mg PO DAILY 01/23/19 11/16/23 History Atorvastatin [Lipitor] 10 mg PO DAILY 10/11/22 11/16/23 History Tirzepatide [Mounjaro] 5 mg SQ WEEKLY 11/16/23 06/27/24 History Losartan [Cozaar] 50 mg PO DAILY 06/27/24 06/27/24 History
== END ==
LOC: 3 N SLEEP 16:42
PROVIDERS: ATTEND Internal Medicine
DX: G47.33 Obstructive sleep apnea (adult) (pediatric) (principal); I10 Essential (primary) hypertension; E11.9 Type 2 diabetes mellitus without complications; E78.5 Hyperlipidemia, unspecified; Z87.442 Personal history of urinary calculi; Z99.89 Dependence on other enabling machines and devices; Z98.890 Other specified postprocedural states; Z79.899 Other long term (current) drug therapy; Z79.85 Long-term (current) use of injectable non-insulin antidiabetic drugs
CPT/HCPCS: 99212